=== PATIENT | male | born 1960 | race Caucasian/White ===

== ENCOUNTER 2019-03-06 17:51 | Emergency (ER) | payer OTHER ==
[~2019-03-06] VITALS: Ht 195.6 cm; Wt 79.5 kg
[2019-03-06] MEDS ORDERED: HYDROcodone/acetaminophen 10/325mg tab PO STA (18:46)
--- NOTE | 2019-03-06 18:52 | NUR ---
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
[2019-03-06] MEDS ORDERED: bacitracin 15gm ointment TP ONE (20:00)
[2019-03-06] MEDS ORDERED: HYDR-4383 PO (20:55)
--- NOTE | 2019-03-06 21:11 | NUR ---
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 ALSO GOT A PRESCRIPTION FOR PAIN MEDICATION FROM THE MD
[2019-03-06 21:30] VITALS: BP 177/93
== END 2019-03-06 21:36 | disposition home or self-care (01) ==
LOC: ER 17:52
DX: S62.395A Other fracture of fourth metacarpal bone, left hand, initial encounter for closed fracture (principal); I48.20 Chronic atrial fibrillation, unspecified; Z79.899 Other long term (current) drug therapy; W20.8XXA Other cause of strike by thrown, projected or falling object, initial encounter; Y93.89 Activity, other specified; Y92.89 Other specified places as the place of occurrence of the external cause; Y99.0 Civilian activity done for income or pay
CPT/HCPCS: 29130; 73130; 93005; 99283